=== PATIENT | male | born 1975 | race Caucasian/White ===

== ENCOUNTER 2016-09-01 11:39 | Inpatient (IN) ==
--- NOTE | 2016-09-01 12:09 | Emergency Department Note ---
Disposition Clinical Impression: Suicidal ideation Depression Qualifiers: Depression Type: unspecified Qualified Code(s): F32.9 - Major depressive disorder, single episode, unspecified Disposition: Admitted As Inpatient Condition: Fair Forms: ED Satisfaction Letter Time of Disposition: 14:18 Psych HPI - General Chief Complaint: ED Psychiatric Symptoms Stated Complaint: SI Time Seen by Provider: 09/01/16 11:44 Source: patient Mode of arrival: ambulatory Limitations: no limitations Nursing Notes Reviewed: Yes Vital Signs Reviewed: Yes - History of Present Illness HPI Narrative: "I am having a manic episode." Patient states he stopped taking his antipsychotic medications for 5 days ago. He walked from [facility]. He states he has thoughts of hurting himself-he was going to crush up all of his Seroquel and taken at once in a suicide attempt. He denies drug or alcohol abuse. He admits to auditory hallucinations Pt complaint: suicidal ideation Onset (ago): day(s) Duration: constant History of similar episodes: Yes Improves with: none Worsens with: none Alleged intoxication: No Associated Psychiatric Symptoms: suicidal ideation Associated symptoms: Reports: denies other symptoms Traumatic symptoms: denies traumatic injury Treatments prior to arrival: none Self harm or harm to others: admits thoughts of self harm - Related Data Allergies Allergy/AdvReac Type Severity Reaction Status Date / Time No Known Allergies Allergy Verified 09/01/16 11:46 All systems ED: reviewed and negative except as stated. Constitutional: Reports: as per HPI Eyes: Reports: as per HPI ENT ED: Reports: as per HPI Cardiovascular: Reports: as per HPI Respiratory: Reports: as per HPI Gastrointestinal: Reports: as per HPI Genitourinary: Reports: as per HPI Musculoskeletal: Reports: as per HPI Integumentary: Reports: as per HPI Neurological: Reports: as per HPI Psychiatric: Reports: suicidal thoughts Endocrine: Reports: as per HPI Hematological/Lymphatic: Reports: as per HPI Allergic/Immunologic: Reports: as per HPI Past Medical History - Past Medical History Source: patient Medical history: Reports: non-contributory Psychiatric history: Reports: bipolar, PTSD - Social History Smoking Status: Current every day smoker Smokeless Tobacco Status: No Alcohol use: Reports: none Drug use: Reports: none Physical Exam - General Limitations: no limitations General appearance: alert - Head Head exam: atraumatic - Eye Eye exam: Present: normal appearance, PERRL - ENT ENT exam: normal exam - Neck Neck exam: Present: normal inspection - Chest Chest inspection: Present: normal inspection, symmetric chest wall rise - Respiratory Respiratory exam: Present: normal lung sounds bilaterally - Cardiovascular Cardiovascular exam: Present: regular rate, normal rhythm, normal heart sounds - Rectal Exam Rectal exam: Present: deferred - Extremities Exam Extremities exam: Present: normal inspection - Neurological Exam Neurological exam: Present: alert, oriented X3, CN II-XII intact - Psychiatric Psychiatric exam: Present: normal affect, normal mood - Skin Skin exam: Present: warm, dry, intact Course Course Narrative: Patient reports a manic episode. He has been noncompliant with his antipsychotic regimen. Appears in no acute distress on exam. Has no physical complaints. I will attempt to clear him medically for behavioral evaluation - Reevaluation(s) Reevaluation #1: 1A accepts admission Vital Signs Temperature 97.8 F 09/01/16 11:42 Pulse Rate 90 09/01/16 11:42 Respiratory Rate 18 09/01/16 11:42 Blood Pressure 132/93 09/01/16 11:42 O2 Sat by Pulse Oximetry 99 09/01/16 11:42 Temperature 97.8 F 09/01/16 11:42 Pulse Rate 90 09/01/16 11:42 Respiratory Rate 18 09/01/16 11:42 Blood Pressure 132/93 09/01/16 11:42 O2 Sat by Pulse Oximetry 99 09/01/16 11:42 Psych - Lab Data Lab results reviewed: Yes I reviewed the patient's lab results. Result diagrams: 09/01/16 12:14 09/01/16 12:14 Lab Results 09/01/16 09/01/16 09/01/16 Range/Units 12:09 12:14 12:14 WBC 5.1 (4.3-11.1) K/mcL RBC 4.92 (4.19-5.50) M/mcL Hgb 16.3 (12.9-16.9) g/dL Hct 47.9 (37.5-50.1) % MCV 97.4 (83.0-100.0) fL MCH 33.1 (28.0-33.3) pg MCHC 34.0 (31.6-35.5) g/dL RDW 13.2 (11.5-14.5) % Plt Count 206 (140-400) K/mcL MPV 9.7 (9.4-12.4) fL Immature Gran % 0.2 (0-4) % Seg Neutrophils % 55.4 % Lymphocytes % 30.7 % Monocytes % 8.6 % Eosinophils % 4.5 % Basophils % 0.6 % Neutrophils # 2.8 (1.6-8.9) K/mcL Lymphocytes # 1.6 (0.6-4.6) K/mcL Monocytes # 0.4 (0.0-1.3) K/mcL Eosinophils # 0.2 (0.0-0.6) K/mcL Basophils # 0.0 (0.0-0.2) K/mcL Sodium 139 (136-145) mEq/L Potassium 4.1 (3.5-4.5) mEq/L Chloride 106 (98-109) mEq/L Carbon Dioxide 27 (19-29) mEq/L BUN 11 (8-26) mg/dL Creatinine 0.97 (0.72-1.25) mg/dL Est GFR ( Amer) > 60 (> 60) Est GFR (Non-Af Amer) > 60 (> 60) BUN/Creatinine Ratio 11 (6-26) Glucose 104 H (70-99) mg/dL Calculated Osmolality 288 (280-300) Calcium 9.7 (8.6-10.8) mg/dL Salicylates < 5.0 L (15-30) mg/dL Urine Opiates Screen Negative (Atvaco=356) ng/mL Acetaminophen < 1.0 L (10-30) mcg/mL Ur Barbiturates Screen Negative (Ynvtse=854) ng/mL Ur Phencyclidine Scrn Negative (Cutoff=25) ng/mL Ur Amphetamines Screen Negative (Qnqqtr=2543) ng/mL U Benzodiazepines Scrn Negative (Toyfyu=863) ng/mL [place] (0.6-1.2) mEq/L Urine Cocaine Screen Negative (Cutoff= 300) ng/mL U Marijuana (THC) Screen Negative (Cutoff = 50) ng/mL Ethyl Alcohol < 10 (0-10) mg/dL 09/01/16 Range/Units 12:14 WBC (4.3-11.1) K/mcL RBC (4.19-5.50) M/mcL Hgb (12.9-16.9) g/dL Hct (37.5-50.1) % MCV (83.0-100.0) fL MCH (28.0-33.3) pg MCHC (31.6-35.5) g/dL RDW (11.5-14.5) % Plt Count (140-400) K/mcL MPV (9.4-12.4) fL Immature Gran % (0-4) % Seg Neutrophils % % Lymphocytes % % Monocytes % % Eosinophils % % Basophils % % Neutrophils # (1.6-8.9) K/mcL Lymphocytes # (0.6-4.6) K/mcL Monocytes # (0.0-1.3) K/mcL Eosinophils # (0.0-0.6) K/mcL Basophils # (0.0-0.2) K/mcL Sodium (136-145) mEq/L Potassium (3.5-4.5) mEq/L Chloride (98-109) mEq/L Carbon Dioxide (19-29) mEq/L BUN (8-26) mg/dL Creatinine (0.72-1.25) mg/dL Est GFR ( Amer) (> 60) Est GFR (Non-Af Amer) (> 60) BUN/Creatinine Ratio (6-26) Glucose (70-99) mg/dL Calculated Osmolality (280-300) Calcium (8.6-10.8) mg/dL Salicylates (15-30) mg/dL Urine Opiates Screen (Armoip=392) ng/mL Acetaminophen (10-30) mcg/mL Ur Barbiturates Screen (Iwwawa=506) ng/mL Ur Phencyclidine Scrn (Cutoff=25) ng/mL Ur Amphetamines Screen (Yewfpt=1512) ng/mL U Benzodiazepines Scrn (Whxbgn=432) ng/mL [place] 0.4 L (0.6-1.2) mEq/L Urine Cocaine Screen (Cutoff= 300) ng/mL U Marijuana (THC) Screen (Cutoff = 50) ng/mL Ethyl Alcohol (0-10) mg/dL Psychiatric Medical Clearance - Medical Clearance Checklist Medical History: No Social History Section defined Current Vitals: Last Vital Signs Temp 97.8 F 09/01/16 11:42 Pulse 90 09/01/16 11:42 Resp 18 09/01/16 11:42 BP 132/93 09/01/16 11:42 Pulse Ox 99 09/01/16 11:42 Psychiatric Lab Panel: Drug Levels and Toxicity 09/01/16 09/01/16 09/01/16 12:09 12:14 12:14 Urine Opiates Screen Negative Acetaminophen < 1.0 L Ur Barbiturates Screen Negative Ur Phencyclidine Scrn Negative Ur Amphetamines Screen Negative U Benzodiazepines Scrn Negative [place] 0.4 L Urine Cocaine Screen Negative U Marijuana (THC) Screen Negative Ethyl Alcohol < 10 Abnormal Labs: Abnormal lab results Glucose 104 mg/dL (70-99) H 09/01/16 12:14 Salicylates < 5.0 mg/dL (15-30) L 09/01/16 12:14 Acetaminophen < 1.0 mcg/mL (10-30) L 09/01/16 12:14 [place] 0.4 mEq/L (0.6-1.2) L 09/01/16 12:14 Statement of Medical Clearance: I have evaluated the patient, reviewed diagnostic information, and certify that the patient's medical condition is sufficiently stable that transfer to the psychiatric unit does not pose a significant risk of deterioration.
[2016-09-01 12:23] LABS: Amphetamine Screen,Urine Negative ng/mL (Cutoff=1000); Barbiturate Screen,Urine Negative ng/mL (Cutoff=200); Benzodiazepines Screen,Urine Negative ng/mL (Cutoff=200); Cannabinoid Screen,Urine Negative ng/mL (Cutoff = 50); Cocaine Screen,Urine Negative ng/mL (Cutoff= 300); Opiate Screen,Urine Negative ng/mL (Cutoff=300); Phencyclidine Screen,Urine Negative ng/mL (Cutoff=25)
[2016-09-01 12:40] LABS: Basophils % 0.6 %; Eosinophils # 0.2 K/mcL (0.0-0.6); Eosinophils % 4.5 %; Hematocrit 47.9 % (37.5-50.1); Hemoglobin 16.3 g/dL (12.9-16.9); Immature Granulocytes % 0.2 % (0-4); Lymphocytes # 1.6 K/mcL (0.6-4.6); Lymphocytes % 30.7 %; Mean Corpuscular Hemoglobin 33.1 pg (28.0-33.3); Mean Corpuscular Volume 97.4 fL (83.0-100.0); Mean Platelet Volume 9.7 fL (9.4-12.4); Monocytes # 0.4 K/mcL (0.0-1.3); Monocytes % 8.6 %; Neutrophils # 2.8 K/mcL (1.6-8.9); Platelet Count 206 K/mcL (140-400); Red Blood Count 4.92 M/mcL (4.19-5.50); Red Cell Distribution Width 13.2 % (11.5-14.5); Segmented Neutrophils % 55.4 %
[2016-09-01 12:54] LABS: BUN/Creatinine Ratio 11 (6-26); Blood Urea Nitrogen 11 mg/dL (8-26); Calcium 9.7 mg/dL (8.6-10.8); Carbon Dioxide 27 mEq/L (19-29); Chloride 106 mEq/L (98-109); Glucose 104 mg/dL (70-99); Osmolality,Calculated 288 (280-300); Potassium 4.1 mEq/L (3.5-4.5); Sodium 139 mEq/L (136-145); eGFR For African Americans > 60 (> 60); eGFR For Non-African Americans > 60 (> 60)
[2016-09-01 12:55] LABS: Acetaminophen < 1.0 mcg/mL (10-30); Ethanol < 10 mg/dL (0-10); Salicylate < 5.0 mg/dL (15-30)
[2016-09-01] MEDS ORDERED: Nicotine 2 MG GUM BC PRN (16:40)
[2016-09-01] MEDS ORDERED: *HR* LORazepam 2 MG/ML VIAL IM PRN (16:40)
[2016-09-01] MEDS ORDERED: traZODone 50 MG TABLET PO PRN (16:40)
[2016-09-01] MEDS ORDERED: *HR* LORazepam 1 MG TABLET PO PRN (16:40)
[2016-09-01] MEDS ORDERED: hydrOXYzine pamoate 25 MG CAPSULE PO PRN (16:40)
[2016-09-01] MEDS ORDERED: MOM Conc 10 ML UD.LIQ PO PRN (16:40)
[2016-09-01] MEDS ORDERED: Mag Hydrox/Al Hydrox/Simeth 30 ML UDC PO PRN (16:40)
[2016-09-01] MEDS ORDERED: Ibuprofen 400 MG TABLET PO PRN (16:40)
[2016-09-01] MEDS ORDERED: Haloperidol Lactate 5 MG/ML VIAL IM PRN (16:40)
--- NOTE | 2016-09-02 12:46 | Psychiatry History & Physical ---
Date of Encounter: 09/02/16 Time of Encounter: 12:45 History of Present Illness Patient Stated Chief Complaint: Suicidal thoughts and depression. Medicare Admission Attestation: For traditional Medicare patients the provided hospital inpatient services are reasonable and necessary and in the case of services not specified as inpatient -only under 42 CFR 419.22 (n), that they are appropriately provided as inpatient services in accordance 42 CFR 412.3. For Critical Access Hospital the patient may reasonably be expected to be discharged or transferred to a hospital within 96 hours after admission to the Critical Access Hospital. Admitted From: Emergency Dept Plans for Post Hospital Care: Transfer Other (Pt claims to be homeless) History of Present Illness: Mr. Lance is a 41 year old male with onset of psychiatric issues since adolescence. He is dually diagnosed with primary DOC being THC and alcohol. He has h/o 2 psych hosp. He has h/o 7 suicide attempts reportedly. Last one was last year with OD. He has been off meds ( [place], Buspar, Trazodone, Seroquel) for a week and has started becoming psychotic getting preoccupied with the govt putting a chip in him which he believes is causing static noisein him. He claims he walked for 2 days straight from [facility] to [facility]. This is very unlikely. He believes his mood has been labile switching between manic agitation and depression. He has not been sleeping well, appetite is low. He reports that he is homeless now and will need assistance with housing upon discharge. Past Med Surg Social Fam HX - Past Medical History Medical history: non-contributory - Past Surgical History Surgical History: non-contributory - Social History Smoking Status: Current some day smoker Smokeless Tobacco Status: No Alcohol use: none Drug use: none Occupational status: unemployed Current living situation: Homeless Activity Level: Independent ambulation Recent Out of Country Travel Within the Last 8 Weeks: No Exposure or Possible Exposure to Illness During Travel: No Medications & Allergies Amitriptyline [Elavil] 100 mg PO HS 09/01/16 [History] Buspirone HCl [Buspar] 10 mg PO TID 09/01/16 [History] Ibuprofen 800 mg PO Q8H PRN 09/01/16 [History] [place] Carbonate 900 mg PO HS 09/01/16 [History] Quetiapine Fumarate [Seroquel] 400 mg PO HS 09/01/16 [History] TraZODone 100 mg PO HS PRN 09/01/16 [History] Allergies No Known Allergies Allergy (Verified 09/01/16 11:46) Review of Systems Psychiatric: Reports: depression, anxiety, abnormal sleep pattern, suicidal ideation, auditory hallucinations, anhedonia, difficulty concentrating, irritability, mood swings Mental Status Exam Level of alertness: Alert Patient appearance: Well Groomed, Well-nourished Behavior: agitated Psychomotor activity: Normal Eye contact: Minimal Contact Mood description: Angry, Depressed Affect description: labile Speech pattern: Pressured Speech volume: Normal, Loud Thought process: Intact, Logical, Circumstantial, Tangential Thought content: Yes Overt delusions, Yes Somatic delusion Perceptual disturbances: Yes Auditory hallucinations, No Visual hallucinations Attention span: Unable to Focus Memory description: Grossly Intact Patient reliability: Questionable Historian Intelligence estimate: Average Judgment: Limited Insight: Minimal Results - Vital Signs Vital signs: Temp Pulse Resp BP Pulse Ox 98.3 F 85 16 125/89 99 09/02/16 08:36 09/02/16 08:36 09/02/16 08:36 09/02/16 08:36 09/01/16 11:42 - Labs Labs: Laboratory Last Values WBC 5.1 K/mcL (4.3-11.1) 09/01/16 12:14 RBC 4.92 M/mcL (4.19-5.50) 09/01/16 12:14 Hgb 16.3 g/dL (12.9-16.9) 09/01/16 12:14 Hct 47.9 % (37.5-50.1) 09/01/16 12:14 MCV 97.4 fL (83.0-100.0) 09/01/16 12:14 MCH 33.1 pg (28.0-33.3) 09/01/16 12:14 MCHC 34.0 g/dL (31.6-35.5) 09/01/16 12:14 RDW 13.2 % (11.5-14.5) 09/01/16 12:14 Plt Count 206 K/mcL (140-400) 09/01/16 12:14 MPV 9.7 fL (9.4-12.4) 09/01/16 12:14 Immature Gran % 0.2 % (0-4) 09/01/16 12:14 Seg Neutrophils % 55.4 % 09/01/16 12:14 Lymphocytes % 30.7 % 09/01/16 12:14 Monocytes % 8.6 % 09/01/16 12:14 Eosinophils % 4.5 % 09/01/16 12:14 Basophils % 0.6 % 09/01/16 12:14 Neutrophils # 2.8 K/mcL (1.6-8.9) 09/01/16 12:14 Lymphocytes # 1.6 K/mcL (0.6-4.6) 09/01/16 12:14 Monocytes # 0.4 K/mcL (0.0-1.3) 09/01/16 12:14 Eosinophils # 0.2 K/mcL (0.0-0.6) 09/01/16 12:14 Basophils # 0.0 K/mcL (0.0-0.2) 09/01/16 12:14 Sodium 139 mEq/L (136-145) 09/01/16 12:14 Potassium 4.1 mEq/L (3.5-4.5) 09/01/16 12:14 Chloride 106 mEq/L (98-109) 09/01/16 12:14 Carbon Dioxide 27 mEq/L (19-29) 09/01/16 12:14 BUN 11 mg/dL (8-26) 09/01/16 12:14 Creatinine 0.97 mg/dL (0.72-1.25) 09/01/16 12:14 Est GFR ( Amer) > 60 (> 60) 09/01/16 12:14 Est GFR (Non-Af Amer) > 60 (> 60) 09/01/16 12:14 BUN/Creatinine Ratio 11 (6-26) 09/01/16 12:14 Glucose 104 mg/dL (70-99) H 09/01/16 12:14 Calculated Osmolality 288 (280-300) 09/01/16 12:14 Calcium 9.7 mg/dL (8.6-10.8) 09/01/16 12:14 Salicylates < 5.0 mg/dL (15-30) L 09/01/16 12:14 Urine Opiates Screen Negative ng/mL (Ydkgyh=760) 09/01/16 12:09 Acetaminophen < 1.0 mcg/mL (10-30) L 09/01/16 12:14 Ur Barbiturates Screen Negative ng/mL (Shgaqy=292) 09/01/16 12:09 Ur Phencyclidine Scrn Negative ng/mL (Cutoff=25) 09/01/16 12:09 Ur Amphetamines Screen Negative ng/mL (Nxgqqv=9111) 09/01/16 12:09 U Benzodiazepines Scrn Negative ng/mL (Dxdyrl=202) 09/01/16 12:09 [place] 0.4 mEq/L (0.6-1.2) L 09/01/16 12:14 Urine Cocaine Screen Negative ng/mL (Cutoff= 300) 09/01/16 12:09 U Marijuana (THC) Screen Negative ng/mL (Cutoff = 50) 09/01/16 12:09 Ethyl Alcohol < 10 mg/dL (0-10) 09/01/16 12:14 Assessment and Plan (1) Bipolar 1 disorder, depressed, severe Current visit: Yes Status: Acute Plan: Admit inpatient for safety and stabilization, Close observation, Suicide Precautions per unit protocol, Encourage participation in unit milieu, Group Therapy, Monitor sleep, Monitor appetite, Secure weapons, Family/Supportive other meeting Risks, benefits, side effects, alternatives discussed w/pt: Yes (Restart all home meds. Change Seroquel to Zyprexa.) Patient agreeable to treatment: Yes Plans for Post Hospital Care: Transfer Other (Homeless [facility] )
[2016-09-02] MEDS ORDERED: Ibuprofen 800 MG TABLET PO PRN (13:06)
[2016-09-02] MEDS ORDERED: Lithium Carbonate 300 MG CAPSULE PO SCH (21:00)
[2016-09-02] MEDS: OLANZapine 5 MG TAB.RAPDIS PO SCH (21:11)
--- NOTE | 2016-09-03 14:13 | Psychiatry Progress Note ---
Date of Encounter: 09/03/16 Time of Encounter: 14:00 Subjective Interval history: Patient she will follow-up. He reports improvement with his medication, he asked me to adjust his lithium dose as 900 mg twice a day and we will verify was a pharmacy. Patient is occupied was his SSI claim and placement in a residential as discussed with social work. He is slightly anxious and irritable. Denied any suicidal ideation. Review of Systems Psychiatric: Reports: depression, anxiety, abnormal sleep pattern, suicidal ideation, auditory hallucinations, anhedonia, difficulty concentrating, irritability, mood swings Objective: Exam Patient orientation: Yes Person, Yes Time, Yes Place Level of alertness: Alert Patient appearance: Well-nourished, Unkempt Behavior: cooperative, anxious, restless, dramatic Psychomotor activity: Normal Eye contact: Minimal Contact Mood description: Depressed, Anxious, Labile Affect description: congruent with mood, labile Speech pattern: Coherent, Excessive, Pressured Speech volume: Normal Thought process: Intact, Logical, Circumstantial, Tangential Thought content: Yes Somatic delusion Perceptual disturbances: Yes Auditory hallucinations, No Visual hallucinations Judgment: Limited Insight: Minimal Results - Vital Signs Vital Signs: Temp Pulse Resp BP Pulse Ox 97.8 F 84 16 111/79 99 09/03/16 08:42 09/03/16 08:42 09/03/16 08:42 09/03/16 08:42 09/01/16 11:42 Assessment and Plan (1) Bipolar 1 disorder, depressed, severe Current visit: Yes Status: Acute Plan: Continue hospitalization, Close observation, Suicide Precautions per unit protocol, Encourage participation in unit milieu, Group Therapy, Monitor sleep, Monitor appetite Risks, benefits, side effects, alternatives discussed w/pt: Yes (Restart all home meds. Change Seroquel to Zyprexa.) Patient agreeable to treatment: Yes Consult Discharge Plan - Plan Referrals: NO,PCP [Primary Care Provider] -
[2016-09-03] MEDS: OLANZapine 5 MG TAB.RAPDIS PO SCH (20:32)
[2016-09-03] MEDS: Lithium Carbonate 300 MG CAPSULE PO SCH (21:24)
[2016-09-03] MEDS: traZODone 50 MG TABLET PO PRN (21:24)
[2016-09-04] MEDS: Lithium Carbonate 300 MG CAPSULE PO SCH ×2 (09:04→20:55)
--- NOTE | 2016-09-04 14:33 | Psychiatry Progress Note ---
Date of Encounter: 09/04/16 Time of Encounter: 14:31 Subjective Interval history: Patient is seen for follow-up. His medication where verified and updated. He denies any problem with sleep. He will participate in group activities. His discharge plans are ongoing by social science professor. He denied any suicidal ideation. Review of Systems Psychiatric: Reports: depression, anxiety, abnormal sleep pattern, suicidal ideation, auditory hallucinations, anhedonia, difficulty concentrating, irritability, mood swings Objective: Exam Patient orientation: Yes Person, Yes Time, Yes Place Level of alertness: Alert Patient appearance: Appropriate, Well Groomed Behavior: calm, cooperative, talkative Psychomotor activity: Normal Eye contact: Maintains Eye Contact Mood description: Euthymic/stable, Anxious Affect description: congruent with mood, labile Speech pattern: Normal rate, Normal rhythm, Normal tone Speech volume: Normal Thought process: Linear, Goal Oriented Thought content: No Suicidal ideation, No Homicidal ideation, No Overt delusions Perceptual disturbances: No Auditory hallucinations, No Visual hallucinations Judgment: Fair Insight: Partial Results - Vital Signs Vital Signs: Temp Pulse Resp BP Pulse Ox 97.9 F 83 18 121/85 99 09/04/16 09:00 09/04/16 09:00 09/04/16 09:00 09/04/16 09:00 09/01/16 11:42 Assessment and Plan (1) Bipolar 1 disorder, depressed, severe Current visit: Yes Status: Acute Plan: Continue hospitalization, Close observation, Suicide Precautions per unit protocol, Encourage participation in unit milieu, Group Therapy, Monitor sleep, Monitor appetite Risks, benefits, side effects, alternatives discussed w/pt: Yes (Restart all home meds. Change Seroquel to Zyprexa.) Patient agreeable to treatment: Yes Consult Discharge Plan - Plan Referrals: NO,PCP [Primary Care Provider] -
[2016-09-04] MEDS: OLANZapine 5 MG TAB.RAPDIS PO SCH (20:55)
[2016-09-04] MEDS: traZODone 50 MG TABLET PO PRN (21:05)
[2016-09-05] MEDS: Lithium Carbonate 300 MG CAPSULE PO SCH (09:22)
--- NOTE | 2016-09-05 15:19 | Discharge Summary ---
Date of Encounter: 09/05/16 Time of Encounter: 15:14 Diagnosis - Discharge Diagnosis (1) Bipolar 1 disorder, depressed, severe Status: Acute Medications - Discharge Medications Prescriptions: Amitriptyline [Elavil] 100 mg PO HS #30 tablet Buspirone HCl [Buspar] 10 mg PO TID #90 tablet [place] Carbonate 900 mg PO BID #90 capsule OLANZapine [Zyprexa Zydis] 5 mg PO HS #30 tab.rapdis Quetiapine Fumarate [Seroquel] 400 mg PO HS #60 tablet TraZODone 100 mg PO HS PRN #30 tablet PRN Reason: Insomnia Ibuprofen 800 mg PO Q8H PRN 09/01/16 [History] Acetaminophen [Tylenol] 1,000 mg PO Q6HR PRN 09/02/16 [History] Amitriptyline [Elavil] 100 mg PO HS #30 tablet 09/05/16 [Rx] Buspirone HCl [Buspar] 10 mg PO TID #90 tablet 09/05/16 [Rx] [place] Carbonate 900 mg PO BID #90 capsule 09/05/16 [Rx] OLANZapine [Zyprexa Zydis] 5 mg PO HS #30 tab.rapdis 09/05/16 [Rx] Quetiapine Fumarate [Seroquel] 400 mg PO HS #60 tablet 09/05/16 [Rx] TraZODone 100 mg PO HS PRN #30 tablet 09/05/16 [Rx] Allergies No Known Allergies Allergy (Verified 09/01/16 11:46) Results Procedures and tests throughout hospitalization: Completed Lab Orders Category Date Time Status [place] Stat Lab 09/05/16 11:47 Completed Provider Date of admission: 09/01/16 14:32 Primary care physician: PCP NO Discharging clinician: Jey Gray Assessment and Plan - Patient/Caregiver Discharge Instructions Activity: resume usual activities as tolerated Diet: regular diet - Follow up Plan Follow up with: Willian Buenrostro [Outside] - 09/28/16 2:00 pm (The above appointment is with Amanda An psychiatric prescriber, Please arrive 15 minutes early for this appointment to complete paperwork. You may contact the office regularly to check for cancellations that may allow you to be seen sooner by the psychiatric prescriber. Office staff will contact you directly to schedule your intake appointment for counseling and case management services. ) Functional capacity at discharge: independent ambulation Overall status at discharge: Stable Disposition: Home, Self-Care Hospital Course Hospital course: Mr. Lance is a 41 year old male with a history of bipolar disorder admitted from the emergency room for decompensation due to noncompliance with medication. For details of admission please see H&P On the units patient medication were reviewed and restarted lithium level initially was low and dose was increased to 900 mg twice daily and a follow-up lithium level should be done outpatient. Patient participated in group and activities was compliant with medication. Denied any suicidal ideation. 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 Prior to discharge patient was medically stable denied any side effects from medication denied any suicidal or homicidal ideation. - Time Spent with Patient Total time spent providing and/or coordinating discharge services: Less than 30 minutes Quality - Multiple Antipsychotics Patient discharged on 2 or more antipsychotic medications: Yes - Justification Documentation of: Other justification (Combination is more beneficial and no side effects reported) Procedures - Procedures Procedures: Medication Management, Crisis Stabilization, Supportive Therapy, Group Therapy, Psychoeducational Therapy Mental Status Exam - Mental Status Exam Patient orientation: Yes Person, Yes Time, Yes Place Level of alertness: Alert Patient appearance: Appropriate, Well Groomed Behavior: calm, cooperative Psychomotor activity: Increased Eye contact: Maintains Eye Contact Mood description: Euthymic/stable Affect description: congruent with mood, full range Speech pattern: Normal rate, Normal rhythm, Normal tone Speech Volume: Normal Thought process: Linear, Goal Oriented Thought Content: No Suicidal ideation, No Homicidal ideation, No Overt delusions Perceptual Disturbances: No Auditory hallucinations, No Visual hallucinations Judgment: Limited Insight: Partial
[2016-09-05 18:08] VITALS: BP 114/80
== END 2016-09-05 17:45 | disposition home or self-care (01) | DRG 753 ==
LOC: EMEROO 11:39 → SUATTDRO 14:32 → 1ANU 14:32
PROVIDERS: ADMIT Psychiatry & Neurology Psychiatry; ATTEND Psychiatry & Neurology Psychiatry

== ENCOUNTER 2016-09-28 10:23 | Observation (INO) ==
[2016-09-28 11:09] LABS: Basophils % 0.2 %; Eosinophils # 0.1 K/mcL (0.0-0.6); Hematocrit 47.6 % (37.5-50.1); Immature Granulocytes % 0.2 % (0-4); Immature Platelets 3.2 % (1.1-6.1); Lymphocytes # 1.8 K/mcL (0.6-4.6); Lymphocytes % 14.3 %; Mean Corpuscular HGB Conc 33.6 g/dL (31.6-35.5); Mean Corpuscular Volume 98.1 fL (83.0-100.0); Monocytes # 1.1 K/mcL (0.0-1.3); Monocytes % 8.9 %; Neutrophils # 9.5 K/mcL (1.6-8.9); Platelet Count 227 K/mcL (140-400); Red Blood Count 4.85 M/mcL (4.19-5.50); Red Cell Distribution Width 13.5 % (11.5-14.5); Segmented Neutrophils % 75.4 %
--- NOTE | 2016-09-28 11:16 | Emergency Department Note ---
Disposition Clinical Impression: Suicidal ideation Depression Qualifiers: Depression Type: unspecified Qualified Code(s): F32.9 - Major depressive disorder, single episode, unspecified Disposition: Admitted As Inpatient Condition: Fair Time of Disposition: 14:42 Psych HPI - General Chief Complaint: ED Psychiatric Symptoms Stated Complaint: Psych Consult Time Seen by Provider: 09/28/16 10:46 Source: patient, family Mode of arrival: ambulatory Limitations: no limitations Nursing Notes Reviewed: Yes Vital Signs Reviewed: Yes - History of Present Illness HPI Narrative: 41-year-old male who presents to emergency department complaining of depression and hallucinations. Patient staying in a homeless senior care apparently had his medicines filled 3 days ago. Patient states that he plans to jump off a bridge or walk into traffic to kill himself. Patient also has had some auditory hallucinations. Pt complaint: suicidal ideation, feels depressed If medical clearance, reason: psychiatric condition Onset (ago): day(s) Duration: constant History of similar episodes: Yes Improves with: none Context: not taking psychiatric medications Alleged intoxication: No Associated Psychiatric Symptoms: suicidal ideation, auditory hallucinations Associated symptoms: Reports: denies other symptoms Traumatic symptoms: denies traumatic injury Treatments prior to arrival: none Self harm or harm to others: has plan - Related Data Home Medications Medication Instructions Recorded Confirmed OLANZapine [Zyprexa Zydis] 5 mg PO HS 09/28/16 Previous Rx's Medication Instructions Recorded Amitriptyline [Elavil] 100 mg PO HS #30 tablet 09/05/16 Buspirone HCl [Buspar] 10 mg PO TID #90 tablet 09/05/16 [place] Carbonate 900 mg PO BID #90 capsule 09/05/16 Quetiapine Fumarate [Seroquel] 400 mg PO HS #60 tablet 09/05/16 traZODone [TraZODone] 100 mg PO HS PRN #30 tablet 09/05/16 Allergies Allergy/AdvReac Type Severity Reaction Status Date / Time No Known Allergies Allergy Verified 09/01/16 11:46 All systems ED: reviewed and negative except as stated. Constitutional: Denies: fever, chills, weakness, weight change Eyes: Denies: eye pain, eye discharge, vision change ENT ED: Denies: ear pain, throat pain, dental pain, hearing loss, epistaxis, congestion, dysphagia Cardiovascular: Denies: chest pain, palpitations, dyspnea on exertion, edema, syncope Respiratory: Denies: cough, dyspnea, wheezes, hemoptysis, stridor Gastrointestinal: Denies: abdominal pain, nausea, vomiting, diarrhea, constipation, hematemesis, melena, hematochezia Genitourinary: Denies: urgency, dysuria, frequency, hematuria Musculoskeletal: Denies: back pain, neck pain, arthralgia, myalgia Integumentary: Denies: rash, abrasion, lesions Neurological: Denies: headache, weakness, numbness, paresthesias, confusion, abnormal gait, vertigo Psychiatric: Reports: suicidal thoughts, auditory hallucinations. Denies: anxiety, depression, homicidal thoughts, visual hallucinations Endocrine: Denies: fatigue Hematological/Lymphatic: Denies: easy bleeding, easy bruising Allergic/Immunologic: Denies: facial swelling, urticaria Past Medical History - Past Medical History Medical history: Reports: non-contributory Surgical history: Reports: non-contributory Psychiatric history: Reports: bipolar, PTSD - Social History Smoking Status: Current some day smoker Smokeless Tobacco Status: No Alcohol use: Reports: none Drug use: Reports: none Physical Exam - General Limitations: no limitations General appearance: alert, in no apparent distress - Head Head exam: atraumatic, normocephalic, normal inspection - Eye Eye exam: Present: normal appearance, PERRL, EOMI - ENT ENT exam: normal exam, normal oropharynx, mucous membranes moist - Neck Neck exam: Present: normal inspection, full ROM, trachea midline - Chest Chest inspection: Present: normal inspection, symmetric chest wall rise - Respiratory Respiratory exam: Present: normal lung sounds bilaterally - Cardiovascular Cardiovascular exam: Present: regular rate, normal rhythm, normal heart sounds - Abdominal Exam Abdominal exam: Present: soft, Non-Tender. Absent: tenderness, distention, guarding, rebound, rigidity - Extremities Exam Extremities exam: Present: normal inspection, full ROM. Absent: tenderness, pedal edema - Expanded Lower Extremity Exam Neurovascular/Tendon exam: Absent: motor deficit, sensory deficit, tendon deficit Gait: observed and normal - Back Exam Back exam: Present: normal inspection, full ROM. Absent: tenderness - Neurological Exam Neurological exam: Present: alert, oriented X3 - Psychiatric Psychiatric exam: Present: depressed - Skin Skin exam: Present: warm, dry, intact, normal color Course - Consultations Consultation #1: Patient evaluated by psychiatry and they will be admitted to psychiatric unit. Time: 14:42 Vital Signs Temperature 98.1 F 09/28/16 10:26 Pulse Rate 93 09/28/16 10:26 Respiratory Rate 16 09/28/16 10:26 Blood Pressure 137/88 09/28/16 10:26 O2 Sat by Pulse Oximetry 97 09/28/16 10:26 Temperature 99.0 F 09/28/16 20:34 Pulse Rate 102 09/28/16 20:34 Respiratory Rate 16 09/28/16 20:34 Blood Pressure 129/90 09/28/16 20:34 O2 Sat by Pulse Oximetry 97 09/28/16 10:26 Oxygen Delivery Oxygen Delivery Room Air Psych - Lab Data Result diagrams: 09/28/16 11:03 09/28/16 11:03 Lab Results 09/28/16 09/28/16 09/28/16 Range/Units 11:03 11:03 11:15 WBC 12.6 H (4.3-11.1) K/mcL RBC 4.85 (4.19-5.50) M/mcL Hgb 16.0 (12.9-16.9) g/dL Hct 47.6 (37.5-50.1) % MCV 98.1 (83.0-100.0) fL MCH 33.0 (28.0-33.3) pg MCHC 33.6 (31.6-35.5) g/dL RDW 13.5 (11.5-14.5) % Plt Count 227 (140-400) K/mcL MPV 9.0 L (9.4-12.4) fL Immature Gran % 0.2 (0-4) % Seg Neutrophils % 75.4 % Lymphocytes % 14.3 % Monocytes % 8.9 % Eosinophils % 1.0 % Basophils % 0.2 % Neutrophils # 9.5 H (1.6-8.9) K/mcL Lymphocytes # 1.8 (0.6-4.6) K/mcL Monocytes # 1.1 (0.0-1.3) K/mcL Eosinophils # 0.1 (0.0-0.6) K/mcL Basophils # 0.0 (0.0-0.2) K/mcL Immature Plt Fraction 3.2 (1.1-6.1) % Sodium 140 (136-145) mEq/L Potassium 3.9 (3.5-4.5) mEq/L Chloride 105 (98-109) mEq/L Carbon Dioxide 26 (19-29) mEq/L BUN 15 (8-26) mg/dL Creatinine 0.98 (0.72-1.25) mg/dL Est GFR ( Amer) > 60 (> 60) Est GFR (Non-Af Amer) > 60 (> 60) BUN/Creatinine Ratio 15 (6-26) Glucose 100 H (70-99) mg/dL Calculated Osmolality 291 (280-300) Calcium 9.8 (8.6-10.8) mg/dL TSH 2.700 (0.350-4.840) mcIU/mL Urine Color Yellow (Yellow) Urine Clarity Cloudy A (Clear) Urine pH 6.0 (5.0-8.0) pH Units Ur Specific [place] 1.021 (1.010-1.025) Urine Protein Negative (Neg-Trace) mg/dL Urine Glucose (UA) Normal (Normal) mg/dL Urine Ketones Negative (Negative) mg/dL Urine Blood Negative (Negative) Urine Nitrite Negative (Negative) Urine Bilirubin Negative (Negative) Urine Urobilinogen Normal (Normal) mg/dL Ur Leukocyte Esterase Negative (Negative) Urine Microscopic RBC 0-3 (0-3) per hpf Urine Microscopic WBC 0-3 (0-3) per hpf Ur Squamous Epith Cells Few (None-Few) per lpf Urine Bacteria None Seen (None-Few) per hpf Hyaline Casts None Seen (None-Few) per lpf Salicylates < 5.0 L (15-30) mg/dL Urine Opiates Screen (Jkyfub=119) ng/mL Acetaminophen < 1.0 L (10-30) mcg/mL Ur Barbiturates Screen (Urgzvx=736) ng/mL Ur Phencyclidine Scrn (Cutoff=25) ng/mL Ur Amphetamines Screen (Ymdncp=3817) ng/mL U Benzodiazepines Scrn (Xssbhl=661) ng/mL [place] (0.6-1.2) mEq/L Urine Cocaine Screen (Cutoff= 300) ng/mL U Marijuana (THC) Screen (Cutoff = 50) ng/mL Ethyl Alcohol < 10 (0-10) mg/dL 09/28/16 09/28/16 Range/Units 11:15 11:59 WBC (4.3-11.1) K/mcL RBC (4.19-5.50) M/mcL Hgb (12.9-16.9) g/dL Hct (37.5-50.1) % MCV (83.0-100.0) fL MCH (28.0-33.3) pg MCHC (31.6-35.5) g/dL RDW (11.5-14.5) % Plt Count (140-400) K/mcL MPV (9.4-12.4) fL Immature Gran % (0-4) % Seg Neutrophils % % Lymphocytes % % Monocytes % % Eosinophils % % Basophils % % Neutrophils # (1.6-8.9) K/mcL Lymphocytes # (0.6-4.6) K/mcL Monocytes # (0.0-1.3) K/mcL Eosinophils # (0.0-0.6) K/mcL Basophils # (0.0-0.2) K/mcL Immature Plt Fraction (1.1-6.1) % Sodium (136-145) mEq/L Potassium (3.5-4.5) mEq/L Chloride (98-109) mEq/L Carbon Dioxide (19-29) mEq/L BUN (8-26) mg/dL Creatinine (0.72-1.25) mg/dL Est GFR ( Amer) (> 60) Est GFR (Non-Af Amer) (> 60) BUN/Creatinine Ratio (6-26) Glucose (70-99) mg/dL Calculated Osmolality (280-300) Calcium (8.6-10.8) mg/dL TSH (0.350-4.840) mcIU/mL Urine Color (Yellow) Urine Clarity (Clear) Urine pH (5.0-8.0) pH Units Ur Specific [place] (1.010-1.025) Urine Protein (Neg-Trace) mg/dL Urine Glucose (UA) (Normal) mg/dL Urine Ketones (Negative) mg/dL Urine Blood (Negative) Urine Nitrite (Negative) Urine Bilirubin (Negative) Urine Urobilinogen (Normal) mg/dL Ur Leukocyte Esterase (Negative) Urine Microscopic RBC (0-3) per hpf Urine Microscopic WBC (0-3) per hpf Ur Squamous Epith Cells (None-Few) per lpf Urine Bacteria (None-Few) per hpf Hyaline Casts (None-Few) per lpf Salicylates (15-30) mg/dL Urine Opiates Screen Negative (Xuzutg=123) ng/mL Acetaminophen (10-30) mcg/mL Ur Barbiturates Screen Negative (Rdujhe=319) ng/mL Ur Phencyclidine Scrn Negative (Cutoff=25) ng/mL Ur Amphetamines Screen Negative (Ifwqdk=9372) ng/mL U Benzodiazepines Scrn Negative (Nbuoqr=294) ng/mL [place] 0.2 L (0.6-1.2) mEq/L Urine Cocaine Screen Negative (Cutoff= 300) ng/mL U Marijuana (THC) Screen Negative (Cutoff = 50) ng/mL Ethyl Alcohol (0-10) mg/dL Psychiatric Medical Clearance - Medical Clearance Checklist Does the patient have a NEW psychiatric condition?: No Any abnormalities indicating possible medical illness?: Yes (Duct of cough chest x-ray and antibiotics) Any history of medical issues?: No Medical History: No Social History Section defined Any abnormal vital signs prior to transfer?: No Current Vitals: Last Vital Signs Temp 99.0 F 09/28/16 20:34 Pulse 102 09/28/16 20:34 Resp 16 09/28/16 20:34 BP 129/90 09/28/16 20:34 Pulse Ox 97 09/28/16 10:26 Is the patient intoxicated or cognitively impaired?: No Psychiatric Lab Panel: Drug Levels and Toxicity 09/28/16 09/28/16 09/28/16 11:03 11:15 11:59 Urine Opiates Screen Negative Acetaminophen < 1.0 L Ur Barbiturates Screen Negative Ur Phencyclidine Scrn Negative Ur Amphetamines Screen Negative U Benzodiazepines Scrn Negative [place] 0.2 L Urine Cocaine Screen Negative U Marijuana (THC) Screen Negative Ethyl Alcohol < 10 Any abnormalities on the physical exam?: No Any abnormal labs?: No Abnormal Labs: Abnormal lab results WBC 12.6 K/mcL (4.3-11.1) H 09/28/16 11:03 MPV 9.0 fL (9.4-12.4) L 09/28/16 11:03 Neutrophils # 9.5 K/mcL (1.6-8.9) H 09/28/16 11:03 Glucose 100 mg/dL (70-99) H 09/28/16 11:03 Urine Clarity Cloudy (Clear) A 09/28/16 11:15 Salicylates < 5.0 mg/dL (15-30) L 09/28/16 11:03 Acetaminophen < 1.0 mcg/mL (10-30) L 09/28/16 11:03 [place] 0.2 mEq/L (0.6-1.2) L 09/28/16 11:59 Does the patient require durable medical equiptment?: No Is the patient ambulatory?: Yes Is the patient a fall risk?: No Has the patient been medically cleared?: Yes Any acute medical condition require Tx prior to transfer?: Yes (Anabiotic started for bronchitis) Statement of Medical Clearance: I have evaluated the patient, reviewed diagnostic information, and certify that the patient's medical condition is sufficiently stable that transfer to the psychiatric unit does not pose a significant risk of deterioration.
[2016-09-28 11:24] LABS: Acetaminophen < 1.0 mcg/mL (10-30); BUN/Creatinine Ratio 15 (6-26); Blood Urea Nitrogen 15 mg/dL (8-26); Calcium 9.8 mg/dL (8.6-10.8); Carbon Dioxide 26 mEq/L (19-29); Chloride 105 mEq/L (98-109); Ethanol < 10 mg/dL (0-10); Glucose 100 mg/dL (70-99); Osmolality,Calculated 291 (280-300); Potassium 3.9 mEq/L (3.5-4.5); Salicylate < 5.0 mg/dL (15-30); Sodium 140 mEq/L (136-145); eGFR For African Americans > 60 (> 60); eGFR For Non-African Americans > 60 (> 60)
[2016-09-28 11:27] LABS: Bilirubin,Urine Negative (Negative); Blood,Urine Negative (Negative); Clarity,Urine Cloudy (Clear); Color,Urine Yellow (Yellow); Glucose,Urine (UA) Normal (Normal); Ketones,Urine Negative (Negative); Leukocyte Esterase,Urine Negative (Negative); Nitrite,Urine Negative (Negative); Protein,Urine Negative (Neg-Trace); Specific Gravity,Urine 1.021 (1.010-1.025); Urobilinogen,Urine Normal (Normal)
[2016-09-28 11:28] LABS: Bacteria,Urine None Seen per hpf (None-Few); Hyaline Casts,Urine None Seen per lpf (None-Few); RBC,Urine 0-3 per hpf (0-3); Squamous Epithelial Cell,Urine Few per lpf (None-Few); WBC,Urine 0-3 per hpf (0-3)
[2016-09-28 11:32] LABS: Amphetamine Screen,Urine Negative ng/mL (Cutoff=1000); Barbiturate Screen,Urine Negative ng/mL (Cutoff=200); Benzodiazepines Screen,Urine Negative ng/mL (Cutoff=200); Cannabinoid Screen,Urine Negative ng/mL (Cutoff = 50); Cocaine Screen,Urine Negative ng/mL (Cutoff= 300); Opiate Screen,Urine Negative ng/mL (Cutoff=300); Phencyclidine Screen,Urine Negative ng/mL (Cutoff=25)
[2016-09-28] MEDS ORDERED: Azithromycin 250 MG TABLET PO ONE (13:46)
[2016-09-28] MEDS ORDERED: Acetaminophen 325 MG TABLET PO PRN (15:47)
[2016-09-28] MEDS ORDERED: Haloperidol Lactate 5 MG/ML VIAL IM PRN (15:47)
[2016-09-28] MEDS ORDERED: MOM Conc 10 ML UD.LIQ PO PRN (15:47)
[2016-09-28] MEDS ORDERED: *HR* LORazepam 2 MG/ML VIAL IM PRN (15:47)
[2016-09-28] MEDS ORDERED: hydrOXYzine pamoate 25 MG CAPSULE PO PRN (15:47)
[2016-09-28] MEDS ORDERED: Mag Hydrox/Al Hydrox/Simeth 30 ML UDC PO PRN (15:47)
[2016-09-28] MEDS ORDERED: *HR* LORazepam 1 MG TABLET PO PRN (15:47)
[2016-09-28] MEDS: Nicotine 21 MG PATCH.TD24 TD SCH (16:53)
[2016-09-28] MEDS: Lithium Carbonate 300 MG CAPSULE PO SCH (20:43)
[2016-09-28] MEDS: traZODone 50 MG TABLET PO PRN (20:44)
[2016-09-29] MEDS: Nicotine 21 MG PATCH.TD24 TD SCH (08:23)
[2016-09-29] MEDS: Lithium Carbonate 300 MG CAPSULE PO SCH ×2 (08:23→20:48)
--- NOTE | 2016-09-29 08:46 | Psychiatry History & Physical ---
Date of Encounter: 09/29/16 Time of Encounter: 08:40 History of Present Illness Patient Stated Chief Complaint: suicidal ideation Medicare Admission Attestation: For traditional Medicare patients the provided hospital inpatient services are reasonable and necessary and in the case of services not specified as inpatient -only under 42 CFR 419.22 (n), that they are appropriately provided as inpatient services in accordance 42 CFR 412.3. For Critical Access Hospital the patient may reasonably be expected to be discharged or transferred to a hospital within 96 hours after admission to the Critical Access Hospital. History of Present Illness: Mr. Lance is a 41 year old male who initially presented to [facility] and tried to check himself in there. He was told he would need to go through inpatient psychiatry in order to qualify for a bed sooner then the end of October. Presented to ER with vague SI, AH, and an upper respiratory infection. Told nursing staff his plan was to get a squirrel suit and jump off a mountain and crash. Less SI today. Really focused on respite care. Already prescribed multiple psych meds-[place], Seroquel, Elavil, Trazodone, and Buspar. Finds Buspar ineffective for nerves. Not interested in trying anything new but would like current dose increased. He his homeless. 30 day readmit. Last discharged to a homeless senior care. Plan will be to increase Buspar, treat upper respiratory infection, and have [facility] evaluate him for placement. Past Med Surg Social Fam HX - Past Medical History Medical history: non-contributory - Past Psychiatric History Psychiatric history: Reports: bipolar, depression, PTSD, previous psychiatric hospitalization - Past Surgical History Surgical History: non-contributory - Social History Smoking Status: Current some day smoker Smokeless Tobacco Status: No Alcohol use: none Drug use: none Medications & Allergies Amitriptyline [Elavil] 100 mg PO HS #30 tablet 09/05/16 [Rx] Buspirone HCl [Buspar] 10 mg PO TID #90 tablet 09/05/16 [Rx] [place] Carbonate 900 mg PO BID #90 capsule 09/05/16 [Rx] Quetiapine Fumarate [Seroquel] 400 mg PO HS #60 tablet 09/05/16 [Rx] traZODone [TraZODone] 100 mg PO HS PRN #30 tablet 09/05/16 [Rx] OLANZapine [Zyprexa Zydis] 5 mg PO HS 09/28/16 [History] Allergies No Known Allergies Allergy (Verified 09/01/16 11:46) Review of Systems Constitutional: Reports: fever, chills. Denies: weakness, weight change Eyes: Denies: eye pain, vision change Ears, Nose, Throat: Reports: congestion. Denies: ear pain, throat pain, dental pain, hearing loss Cardiovascular: Denies: chest pain, palpitations, dyspnea on exertion Respiratory: Reports: cough, sputum production. Denies: dyspnea, wheezes Gastrointestinal: Denies: abdominal pain, nausea, vomiting, diarrhea, constipation Genitourinary male: Denies: urgency, dysuria, frequency, genital lesions Genitourinary female: Denies: urgency, dysuria, frequency, abnormal menses, dyspareunia Musculoskeletal: Denies: joint swelling, joint pain Integumentary: Denies: rash, lesions, pruritus Neurological: Denies: headache, weakness, numbness, memory loss Endocrine: Denies: fatigue, heat or cold intolerance Hematologic/Lymphatic: Denies: easy bruising, lymphadenopathy Allergic/Immunologic: Denies: urticaria, itchy eyes Mental Status Exam Patient orientation: Yes Person, Yes Time, Yes Place Level of alertness: Alert Patient appearance: Appropriate Behavior: calm Psychomotor activity: Normal Eye contact: Maintains Eye Contact Mood description: Depressed, Anxious Affect description: congruent with mood Speech pattern: Normal rate, Normal rhythm, Normal tone Speech volume: Normal Thought process: Linear, Goal Oriented Thought content: Yes Suicidal ideation, No Homicidal ideation, No Overt delusions Perceptual disturbances: Yes Auditory hallucinations Attention span: Capable of Focused Attention Memory description: Grossly Intact Patient reliability: Reliable Historian Intelligence estimate: Below Average Judgment: Limited Insight: Partial Exam - HEENT Head exam IM: Present: atraumatic Eye exam IM: Present: EOMI ENT exam IM: Present: mucous membranes moist - Neurological Neurological exam IM: Present: alert, normal gait, oriented X3 - Respiratory Respiratory exam IM: Present: wheezes - GI/Abdominal GI/Abdominal exam IM: Present: normal bowel sounds - Extremities Extremities exam IM: Present: full ROM - Skin Skin exam IM: Present: normal color Results - Vital Signs Vital signs: Temp Pulse Resp BP Pulse Ox 99.0 F 102 16 129/90 97 09/28/16 20:34 09/28/16 20:34 05/12/17 20:34 09/28/16 20:34 09/28/16 10:26 - Labs Labs: Laboratory Last Values WBC 12.6 K/mcL (4.3-11.1) H 09/28/16 11:03 RBC 4.85 M/mcL (4.19-5.50) 09/28/16 11:03 Hgb 16.0 g/dL (12.9-16.9) 09/28/16 11:03 Hct 47.6 % (37.5-50.1) 09/28/16 11:03 MCV 98.1 fL (83.0-100.0) 09/28/16 11:03 MCH 33.0 pg (28.0-33.3) 09/28/16 11:03 MCHC 33.6 g/dL (31.6-35.5) 09/28/16 11:03 RDW 13.5 % (11.5-14.5) 09/28/16 11:03 Plt Count 227 K/mcL (140-400) 09/28/16 11:03 MPV 9.0 fL (9.4-12.4) L 09/28/16 11:03 Immature Gran % 0.2 % (0-4) 09/28/16 11:03 Seg Neutrophils % 75.4 % 09/28/16 11:03 Lymphocytes % 14.3 % 09/28/16 11:03 Monocytes % 8.9 % 09/28/16 11:03 Eosinophils % 1.0 % 09/28/16 11:03 Basophils % 0.2 % 09/28/16 11:03 Neutrophils # 9.5 K/mcL (1.6-8.9) H 09/28/16 11:03 Lymphocytes # 1.8 K/mcL (0.6-4.6) 09/28/16 11:03 Monocytes # 1.1 K/mcL (0.0-1.3) 09/28/16 11:03 Eosinophils # 0.1 K/mcL (0.0-0.6) 09/28/16 11:03 Basophils # 0.0 K/mcL (0.0-0.2) 09/28/16 11:03 Immature Plt Fraction 3.2 % (1.1-6.1) 09/28/16 11:03 Sodium 140 mEq/L (136-145) 09/28/16 11:03 Potassium 3.9 mEq/L (3.5-4.5) 09/28/16 11:03 Chloride 105 mEq/L (98-109) 09/28/16 11:03 Carbon Dioxide 26 mEq/L (19-29) 09/28/16 11:03 BUN 15 mg/dL (8-26) 09/28/16 11:03 Creatinine 0.98 mg/dL (0.72-1.25) 09/28/16 11:03 Est GFR ( Amer) > 60 (> 60) 09/28/16 11:03 Est GFR (Non-Af Amer) > 60 (> 60) 09/28/16 11:03 BUN/Creatinine Ratio 15 (6-26) 09/28/16 11:03 Glucose 100 mg/dL (70-99) H 09/28/16 11:03 Calculated Osmolality 291 (280-300) 09/28/16 11:03 Calcium 9.8 mg/dL (8.6-10.8) 09/28/16 11:03 TSH 2.700 mcIU/mL (0.350-4.840) 09/28/16 11:03 Urine Color Yellow (Yellow) 09/28/16 11:15 Urine Clarity Cloudy (Clear) A 09/28/16 11:15 Urine pH 6.0 pH Units (5.0-8.0) 09/28/16 11:15 Ur Specific [place] 1.021 (1.010-1.025) 09/28/16 11:15 Urine Protein Negative mg/dL (Neg-Trace) 09/28/16 11:15 Urine Glucose (UA) Normal mg/dL (Normal) 09/28/16 11:15 Urine Ketones Negative mg/dL (Negative) 09/28/16 11:15 Urine Blood Negative (Negative) 09/28/16 11:15 Urine Nitrite Negative (Negative) 09/28/16 11:15 Urine Bilirubin Negative (Negative) 09/28/16 11:15 Urine Urobilinogen Normal mg/dL (Normal) 09/28/16 11:15 Ur Leukocyte Esterase Negative (Negative) 09/28/16 11:15 Urine Microscopic RBC 0-3 per hpf (0-3) 09/28/16 11:15 Urine Microscopic WBC 0-3 per hpf (0-3) 09/28/16 11:15 Ur Squamous Epith Cells Few per lpf (None-Few) 09/28/16 11:15 Urine Bacteria None Seen per hpf (None-Few) 09/28/16 11:15 Hyaline Casts None Seen per lpf (None-Few) 09/28/16 11:15 Salicylates < 5.0 mg/dL (15-30) L 09/28/16 11:03 Urine Opiates Screen Negative ng/mL (Kzkgqp=782) 09/28/16 11:15 Acetaminophen < 1.0 mcg/mL (10-30) L 09/28/16 11:03 Ur Barbiturates Screen Negative ng/mL (Eamdxf=055) 09/28/16 11:15 Ur Phencyclidine Scrn Negative ng/mL (Cutoff=25) 09/28/16 11:15 Ur Amphetamines Screen Negative ng/mL (Rogavq=7373) 09/28/16 11:15 U Benzodiazepines Scrn Negative ng/mL (Syjgpx=314) 09/28/16 11:15 [place] 0.2 mEq/L (0.6-1.2) L 09/28/16 11:59 Urine Cocaine Screen Negative ng/mL (Cutoff= 300) 09/28/16 11:15 U Marijuana (THC) Screen Negative ng/mL (Cutoff = 50) 09/28/16 11:15 Ethyl Alcohol < 10 mg/dL (0-10) 09/28/16 11:03 Assessment and Plan (1) Suicidal ideation Current visit: Yes Status: Acute Plan: Admit inpatient for safety and stabilization, Close observation, Suicide Precautions per unit protocol, Encourage participation in unit milieu, Group Therapy, Monitor sleep, Monitor appetite, Secure weapons Risks, benefits, side effects, alternatives discussed w/pt: Yes Patient agreeable to treatment : Yes Plans for Post Hospital Care: Home Estimated Length of Stay (Days): 4
[2016-09-29] MEDS: GuaiFENesin Liq 200 MG/10 ML UDC PO PRN ×2 (12:09→21:32)
[2016-09-30] MEDS: Lithium Carbonate 300 MG CAPSULE PO SCH ×2 (09:57→20:56)
[2016-09-30] MEDS: Nicotine 21 MG PATCH.TD24 TD SCH (09:58)
--- NOTE | 2016-09-30 09:58 | Psychiatry Progress Note ---
Date of Encounter: 09/30/16 Time of Encounter: 09:51 Subjective Interval history: Still suffering from upper respiratory symptoms but otherwise looks good. Pleasant but also sexually inappropriate at times. Called this loan underwriter "beautiful." Reports his mood is good and he is denying suicidal and homicidal ideation, plan, or intent. Convinced he has a chip in his arm that is causing AH (static) in his ears. Reports the chip was planted in 1997 "and it has one gigabyte of my medical information on it." Calls it an RFID-radio frequency identification device and claims if he could afford a scanner gun he could use it to turn the device off. Unclear if this is strictly a delusion or if does have an identification chip that he has become delusional about over the years. Dishonorably discharged from the so he does have that background. Seems to mostly want housing. Discharged to a fdc following last admission and he bounced right back. Will try to arrange for something different this time. Plan to discuss options with social work tomorrow. Review of Systems Constitutional: Reports: fever, chills. Denies: weakness, weight change Eyes: Denies: eye pain, vision change Ears, Nose, Throat: Reports: congestion. Denies: ear pain, throat pain, dental pain, hearing loss Cardiovascular: Denies: chest pain, palpitations, dyspnea on exertion Respiratory: Reports: cough, sputum production Gastrointestinal: Denies: abdominal pain, nausea, vomiting, diarrhea, constipation Musculoskeletal: Denies: joint swelling, joint pain Neurological: Denies: headache, weakness, numbness, memory loss Objective: Exam Patient orientation: Yes Person, Yes Time, Yes Place Level of alertness: Alert Patient appearance: Appropriate Behavior: calm, cooperative Psychomotor activity: Normal Eye contact: Maintains Eye Contact Mood description: Euthymic/stable Affect description: congruent with mood, full range Speech pattern: Normal rate, Normal rhythm, Normal tone Speech volume: Normal Thought process: Goal Oriented Thought content: No Suicidal ideation, No Homicidal ideation, Yes Overt delusions, Yes Paranoid delusion Perceptual disturbances: No Auditory hallucinations, No Visual hallucinations Judgment: Limited Insight: Partial Results - Vital Signs Vital Signs: Temp Pulse Resp BP Pulse Ox 98.0 F 111 18 108/78 97 09/30/16 09:00 09/30/16 09:00 09/30/16 09:00 09/30/16 09:00 09/28/16 10:26 Assessment and Plan (1) Suicidal ideation Current visit: Yes Status: Acute Plan: Continue hospitalization, Close observation, Suicide Precautions per unit protocol, Encourage participation in unit milieu, Group Therapy, Monitor sleep, Monitor appetite, Secure weapons Risks, benefits, side effects, alternatives discussed w/pt: Yes Patient agreeable to treatment: Yes Consult Discharge Plan - Plan Referrals: NO,PCP [Primary Care Provider] -
[2016-09-30] MEDS: GuaiFENesin Liq 200 MG/10 ML UDC PO PRN ×2 (11:59→20:55)
[2016-09-30] MEDS: traZODone 50 MG TABLET PO PRN (20:55)
[2016-10-01] MEDS: Lithium Carbonate 300 MG CAPSULE PO SCH (08:30)
[2016-10-01] MEDS: GuaiFENesin Liq 200 MG/10 ML UDC PO PRN ×2 (08:31→15:07)
[2016-10-01] MEDS: Nicotine 21 MG PATCH.TD24 TD SCH (08:31)
[2016-10-01 10:33] VITALS: BP 105/74
--- NOTE | 2016-10-01 15:19 | Discharge Summary ---
Date of Encounter: 10/01/16 Time of Encounter: 15:00 Diagnosis - Discharge Diagnosis (1) Bipolar 1 disorder, depressed, severe Status: Acute (2) Suicidal ideation Status: Acute Medications - Discharge Medications Prescriptions: Amitriptyline [Elavil] 100 mg PO HS #30 tablet Buspirone HCl [Buspar] 10 mg PO TID #90 tablet [place] Carbonate 900 mg PO BID #90 capsule Quetiapine Fumarate [Seroquel] 400 mg PO HS #60 tablet traZODone [TraZODone] 100 mg PO HS PRN #30 tablet PRN Reason: Insomnia OLANZapine [Zyprexa Zydis] 5 mg PO HS 09/28/16 [History] Amitriptyline [Elavil] 100 mg PO HS #30 tablet 10/01/16 [Rx] Buspirone HCl [Buspar] 10 mg PO TID #90 tablet 10/01/16 [Rx] [place] Carbonate 900 mg PO BID #90 capsule 10/01/16 [Rx] Quetiapine Fumarate [Seroquel] 400 mg PO HS #60 tablet 10/01/16 [Rx] traZODone [TraZODone] 100 mg PO HS PRN #30 tablet 10/01/16 [Rx] Allergies No Known Allergies Allergy (Verified 09/01/16 11:46) Provider Date of admission: 09/28/16 15:09 Primary care physician: PCP NO Discharging clinician: Jey Gray Assessment and Plan - Patient/Caregiver Discharge Instructions Activity: resume usual activities as tolerated Diet: regular diet - Follow up Plan Follow up with: [facility] [Outside] - 10/04/16 10:30 am (The above appointment is with Pinky Zhou, counselor at [facility]. Your first appointment will be very thorough and the total appointment time will take between two and three hours. You will be completing paperwork, meeting with a counselor and a nurse, and developing a treatment plan. You will receive follow- up appointments for on-going services , which could include counseling and community support. Please bring the following with you to your first visit to the clinic: 1) proof of household income (two consecutive pay stubs, social security award letter, bank statement , statement letter from [facility], child support statement, IRS 1040 or W2 form, or a statement from the person who financially supports you stating they help provide for your basic needs), 2) proof of residency (drivers license, a piece of mail showing your address, a statement from person you live with verifying you live at their address), 3) your social security card, 4) photo ID, and 5) your insurance card (if you have commercial insurance you must call to obtain a prior authorization number before you arrive to your first appointment). If you do not bring these items, you will not be seen.) Clinton Zamudio PAC [Physician [employer]] - 10/17/16 9:00 am (The above appointment is with Clinton Zamudio at [facility]. This appointment is to establish you with a primary care provider. Your needs for psychiatric medication and/or Vivitrol will be assessed for and treated as well. Please arrive 15 minutes early to complete paperwork. Please bring your insurance card, photo ID and list of current medications to your first appointment. This is the first available appointment. You may contact the office regularly to check for cancellations that may allow you to be seen sooner. ) Functional capacity at discharge: independent ambulation Overall status at discharge: Stable Disposition: Home, Self-Care Hospital Course Hospital course: Mr. Lance is a 41 year old male admitted from the emergency room suicidal ideation and noncompliance with medication. For details of admission please see H&P On the units patient was started on his medication he admitted that he missed his appointments and ran out of the medication through the noncompliance. He denies suicidal ideation and and promised to keep his appointments. He was medically stable and did not meet criteria for admission and will be discharged. In stable condition. - Time Spent with Patient Total time spent providing and/or coordinating discharge services: Less than 30 minutes Quality - Multiple Antipsychotics Patient discharged on 2 or more antipsychotic medications: Yes - Justification Documentation of: Other justification (Combination is well tolerated without side effects and more effective than monotherapy) Procedures - Procedures Procedures: Medication Management, Crisis Stabilization, Supportive Therapy, Group Therapy, Psychoeducational Therapy Mental Status Exam - Mental Status Exam Patient orientation: Yes Person, Yes Time, Yes Place Level of alertness: Alert Patient appearance: Appropriate, Well Groomed Behavior: calm, cooperative Psychomotor activity: Normal Eye contact: Maintains Eye Contact Mood description: Euthymic/stable Affect description: congruent with mood, full range Speech pattern: Normal rate, Normal rhythm, Normal tone Speech Volume: Normal Thought process: Linear, Goal Oriented Thought Content: No Suicidal ideation, No Homicidal ideation, No Overt delusions Perceptual Disturbances: No Auditory hallucinations, No Visual hallucinations Judgment: Limited Insight: Partial
--- NOTE | 2016-10-01 18:06 | Electrocardiograph Report ---
[facility] Test Date: 2016-09-28 Pat Name: Glenn Lance Department: 102 Room: Gender: M [employer]: : 1975 Requested By: Prince Schaefer Order Number: [id number] Reading MD: James Puente MD Measurements Intervals [place] Rate: 90 P: 33 IL: 114 QRS: 72 QRSD: 104 T: -5 QT: 339 QTc: 387 Interpretive Statements SINUS RHYTHM NONSPECIFIC ST \T\ T-WAVE ABNORMALITY Electronically Signed On 10-01-2016 18:04:45 EDT by James Puente MD
== END 2016-10-01 16:20 | disposition home or self-care (01) | DRG 753 ==
LOC: EMEROO 10:23 → INTOOBSV 15:09 → SUATTDRO 15:09 → 1ANU 15:09
PROVIDERS: ADMIT Psychiatry & Neurology Psychiatry; ATTEND Psychiatry & Neurology Psychiatry